=== PATIENT | male | born 1950 | race Caucasian/White ===

== ENCOUNTER → 2022-03-29 09:55 | Outpatient (BNVA) | payer MEDICARE, OTHER, SELFPAY | PROVIDERS: PCP Nurse Practitioner Family; Referring Provider Nurse Practitioner Family; Visit Provider Surgery | DX: Z80.0 Family history of malignant neoplasm of digestive organs (principal); Z12.11 Encounter for screening for malignant neoplasm of colon ==

== ENCOUNTER 2022-04-08 12:04 | Day surgery (SDC) | payer MEDICARE, OTHER, SELFPAY ==
[2022-04-08 12:32] VITALS: BP 109/78; PULSE 94; RESP 16; TEMP 36.7; O2SAT 100
[2022-04-08] MEDS: Lactated Ringers 1,000 ML 80 ML IV (12:53)
--- NOTE | 2022-04-08 13:48 | W.ANESPRE ---
General Info Date of Service Date Performed: 04/08/22 Height: 5 ft 9 in Weight: 67.4 kg Body Mass Index (BMI): 21.9 Surgical Procedure: Operation Date: 04/08/22 14:05 Proposed Procedure Side Surgeon laura Farrell MD Meds Allergies and Home Medications Allergies Allergy/AdvReac Type Severity Reaction Status Date / Time nut - unspecified Allergy Unknown Verified 04/08/22 12:23 Penicillins Allergy Unknown Skin Rash Verified 04/08/22 12:23 Home Medication Medication Instructions Recorded calcium carbonate 600 mg calcium 600 mg PO BID 11/25/21 (1,500 mg) tablet (Calcium) loratadine 10 mg capsule 10 mg PO DAILY 11/25/21 omega 7-wix-hek-fish oil 1,000 mg 1 cap PO BID 11/25/21 (120 mg-180 mg) capsule (Fish Oil) simvastatin 10 mg tablet 10 mg PO DAILY #90 tabs 01/14/22 Current Visit Medications: Current Medications Generic Name Dose Route Start Last Admin Trade Name Freq PRN Reason Stop Dose Admin Ringer's Solution 1,000 mls @ 80 mls/hr 04/08/22 06:00 04/08/22 12:53 IV 05/07/22 23:59 80 mls/hr INFUSION ALEXANDRA Administration IV Miscellaneous Supplies 1 each 04/08/22 06:00 Iv Access IV 05/07/22 23:59 DIRECTED ALEXANDRA Sodium Chloride 0 ml 04/08/22 06:00 Normal Saline Flush 10 Ml Syr IV 05/07/22 23:59 PRN PRN Sodium Chloride 0 ml 04/08/22 06:00 Normal Saline 10 Ml Vial IJ 05/07/22 23:59 DIRECTED PRN Sterile Water 0 ml 04/08/22 06:00 Water,Injection,Sterile 10 Ml Vial IJ 05/07/22 23:59 DIRECTED PRN PFSH Active Problems Active Problems: Problem Status Onset Code Abnormal LFTs R79.89 Hyperlipidemia E78.5 Age-related nuclear cataract, 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, 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 Onychomycosis B35.1 Screening for colon cancer Z12.11 Medical History Medical History Dermoid cyst of scalp Surgically removed Presbyopia Regular astigmatism, bilateral Surgical History Surgical History Hx of colonoscopy Hx of inguinal hernia surgery Hx of tonsillectomy Tobacco Smoking/Tobacco Use Status: Never Passive smoking exposure: Yes Second hand exposure: Yes Alcohol Alcohol Intake: never Substance Use Substance use: Never Substance use type: does not use Vital Signs and Lab Results Vital Signs Most Recent Vital Signs in EMR: Most Recent Vital Signs Temp Pulse Resp BP Pulse Ox 36.7 C 94 H 16 109/78 100 04/08/22 12:32 04/08/22 12:32 04/08/22 12:32 04/08/22 12:32 04/08/22 12:32 Lab Results Blood Type / Crossmatch: No Data to Display Complete Blood Count: No Data to Display Complete Metabolic Panel: No Data to Display Liver Function Panel: No Data to Display Coagulation Panel: No Data to Display Cardiac Panel: No Data to Display Arterial Blood Gas: No Data to Display Venous Blood Gas: No Data to Display Pancreas Panel: No Data to Display Thyroid Panel: No Data to Display Infectious Disease: No Data to Display Blood Cultures: No Data to Display Toxicology Panel: No Data to Display Anesthesia Assessment and Plan Anesthesia History Personal History: No History of Anesthesia Complications Family History: No Family History of Anesthesia Complications Exercise Tolerance Exercise Tolerance: Metabolic Equivalents>4 Pertinent Negatives Pertinent Negatives: No Symptoms of GERD, No Major Cardiovascular Symptoms or Complaints, No Major Pulmonary Symptoms or Complaints and No History of CVA/TIA Cardiac & Pulmonary Exam Cardiac Exam: Normal S1/S2 Heart Sounds Pulmonary Exam: Clear Bilateral Breath Sounds Implantable Cardiac Device Does patient have a Pacemaker or an ICD?: No Airway Exam Known Difficult Airway: No Mallampati Class: 2 Mouth Opening: Normal (> 3cm) Thyromental Distance: Greater than 3 cm Neck Range of Motion: Full ROM Neck Circumference: Normal Teeth Condition: Normal Dentition ASA Classification ASA Score: ASA 2 Emergency Case?: No NPO Status NPO Status: NPO Clears >2 hours, Solids >8 hours Anesthesia Plan Resuscitation Status: Full Code Anesthesia Technique: General Anesthesia Airway Planned: Natural Airway Monitors Used: Standard Monitors
[2022-04-08 13:58] VITALS: BMI 21.9
--- NOTE | 2022-04-08 14:47 | BOWEL_PTH ---
PATIENT: Carlos Farrell LOC: [facility] U#:[id number] AGE/SX: 71/M ROOM: RE04/08/[address]: Elias Farrell MD : [id number] BED: DIS: 04/08/2022 SPEC #: [id number] RECD: 04/08/22 18:33 STATUS: RAMIRO RE #: [id number] EDGARD: 04/08/22 14:[address]: Elias Farrell DEPT: Surgical Specimen RECD BY: Chayito Ly ENTERED: 04/08/22 18:34 SP TYPE: Bowel OTHR DR: Jaxon Caal, NEO Tissues: 1 - BIOPSY BOWEL Procedures: GROSS AND MICRO LEVEL 4 Comments: [id number]
[2022-04-08 15:00] VITALS: BP 93/70; PULSE 94; RESP 16; TEMP 36.5; O2SAT 99
--- NOTE | 2022-04-08 15:10 | W.COLOREPORT ---
Colonoscopy Report Date of procedure: 04/08/22 Pre-op diagnosis general: Screening colonoscopy for routine health maintenance Post-op diagnosis procedure note: other (Colon polyp) Procedure: Colonoscopy Surgeon: Elias Farrell Anesthesia Type: General:No Airway and General LMA/ETT Estimated blood loss (mL): 10 Pathology: other (Colon polyp at 95 cm) Complications: None Disposition: same day Indications: Carlos is a 71-year-old male with a family medical history that significant for a father with colon cancer. He has undergone screening colonoscopies in the past at a 5-year interval. He is here today for routine repeat screening colonoscopy. Prep: Miralax/Dulcolax Procedure Start Time: 14:24 Procedure End Time: 14:57 Retraction Time: 17 Findings: Colon polyp at 95 cm Procedure Description: After the induction of monitored anesthetic care, and with the patient in left lateral decubitus position, I began by performing an external anorectal exam.? Perineum and skin were normal, as was the anal verge.? There was no evidence of external hemorrhoids.? Next, I performed a digital rectal exam.? I did not appreciate any abnormal findings.? Next, I advanced a colonoscope into the rectal vault.? I performed retroflexion.? I did not see signs of pathologic internal hemorrhoids.? Using insufflation, I then advanced the colonoscope beyond the rectal folds and into the sigmoid colon before advancing towards the cecum.? The quality of the prep was adequate.? The scope was noted to be in the cecum by identification of the ileocecal valve and appendiceal orifice.? I then began withdrawing the colonoscope using repeated irrigation as necessary for full evaluation of the colonic mucosa. Around 95 cm from the anal verge I identified a 0.75 cm polyp. ?It appeared sessile in character. ?I was able to remove this with a biopsy forceps. ?I examined the site, and there was minimal bleeding. ?Once this was completed, I continued to withdraw the scope and examine the remainder of the colonic mucosa.?Once the scope was withdrawn to the level of the rectum, great care was taken to examine portions of the rectal folds.? Finally, the scope was withdrawn and the patient was brought to the same-day surgery recovery unit as the anesthetic wore off. ?The findings and instructions were shared with the patient prior to discharge.
--- NOTE | 2022-04-08 15:15 | W.PM.DSUDISC ---
Discharge Plan Disposition Patient Disposition: HOME Condition: Good Discharge Details Reason For Visit: [facility] Att[facility] Provider: Elias Farrell Primary Care Provider: Jaxon Caal Home Meds and New Rx's Prescriptions: Continued calcium carbonate [Calcium 600] 600 mg calcium (1,500 mg) tablet 600 mg PO BID loratadine 10 mg capsule 10 mg PO DAILY omega 7-rhy-djy-fish oil [Fish Oil] 1,000 mg (120 mg-180 mg) capsule 1 cap PO BID simvastatin 10 mg tablet 10 mg PO DAILY Qty: 90 3RF Discharge Instructions Instructions: Colorectal Polyps (DC) Additional Instructions: 1. If tolerated, consume a soft, low fiber diet for 1-2 days. [address] Do not drive, drink alcohol, operate machinery, make critical decisions, or do activities that require coordination or balance for 24 hours. 3. Because air was put into your colon during the procedure, expelling air from your rectum (passing gas or farting) is normal. 4. You may not have a bowel movement for 1-3 days because of the colonoscopy prep. This is normal. 5. Go directly to the emergency room if you notice any of the following: Develop chills (warm to touch), or if you have a thermometer and your temperature is above 101 Difficulty breathing or difficultly swallowing Persistent vomiting Severe abdominal pain, other than gas cramps Severe chest pain Black, tarry stools Any bleeding ? exceeding one tablespoon 6. Call your physician if the site where your intravenous was started becomes red, swollen, painful, and warm to touch. 7. Your physician has reviewed your pre-procedure medications. Please continue to take those medications as previously ordered. You will be given specific information/education regarding any changes to your medications before leaving. Referrals: Jaxon Caal, [employer] [Primary Care Provider] - Activity:: Activity as Tolerated Diet:: As Tolerated Discharge Orders Discharge Orders: Discharge Order (Routine); Ordered 04/08/22 Ordered By: Elias Farrell DS: Diagnosis Discharge Diagnosis (1) Colon polyp: Status: Acute Asessment and Plan: My office will call with results of the biopsy
[2022-04-08 15:17] VITALS: BP 108/78; PULSE 91; RESP 16; TEMP 36.6; O2SAT 99
--- NOTE | 2022-04-08 15:23 | W.ANESPOSTOP ---
Postoperative Evaluation Date, Time and Location Date Performed: 04/08/22 Time Performed: 15:23 Patient Location: Day Surgery Unit Vital Signs Most Recent Imported Vital Signs: Most Recent Vital Signs Temp Pulse Resp BP Pulse Ox 36.6 C 91 H 16 108/78 99 04/08/22 15:17 04/08/22 15:17 04/08/22 15:17 04/08/22 15:17 04/08/22 15:17 Pain Score Most Recent Pain Score: Most Recent Pain Score Pain Level 0 04/08/22 15:17 Assessment Mental Status: Awake (Alert & Oriented to Patient Baseline) Airway and Respiratory Function: Patent airway with normal (patient baseline) respiratory exam Cardiovascular Function: Hemodynamically Stable Hydration Status: Adequately Hydrated Nausea & Vomiting: No Nausea or Vomiting Pain: Pt. Denies Any Pain Peripheral Nerve Block: Patient did not receive a nerve block
[2022-04-08 15:39] VITALS: BP 114/77; PULSE 85; RESP 16; TEMP 36.6; O2SAT 99
== END 2022-04-08 15:55 | disposition home or self-care (01) ==
PROVIDERS: PCP Nurse Practitioner Family; Visit Provider Surgery
PROC: 0DJD8ZZ Inspection of Lower Intestinal Tract, Via Natural or Artificial Opening Endoscopic (ICD-10-PCS; CPT 45378; principal; 2022-04-08 14:00)
DX: Z12.11 Encounter for screening for malignant neoplasm of colon (principal); K63.5 Polyp of colon; Z80.0 Family history of malignant neoplasm of digestive organs
CPT/HCPCS: 45380; 88305

== ENCOUNTER 2022-07-12 14:29 | Emergency (ER) | payer MEDICARE, OTHER, SELFPAY ==
[2022-07-12 14:56] VITALS: BP 133/82; PULSE 60; RESP 18; TEMP 36.8; O2SAT 99
--- NOTE | 2022-07-12 15:03 | ED.GENADUL_ITS ---
Discharge Plan Disposition Patient Disposition: Home Condition: Stable Discharge Details Clinical Impression: Distal radius fracture, left, Fracture of ulnar styloid Primary Care Provider: Jaxon Caal ED Provider: Ronit Singletary Home Meds and New Rx's Prescriptions: New oxycodone 5 mg tablet 5 mg PO Q6H PRN (Reason: pain) Qty: 10 0RF Continued calcium carbonate [Calcium 600] 600 mg calcium (1,500 mg) tablet 600 mg PO BID loratadine 10 mg capsule 10 mg PO DAILY omega 9-oou-oqs-fish oil [Fish Oil] 1,000 mg (120 mg-180 mg) capsule 1 cap PO BID simvastatin 10 mg tablet 10 mg PO DAILY Qty: 90 3RF Discharge Instructions Instructions: Wrist Fracture in Adults (ED) Additional Instructions: You have a fracture of both of the radius and ulna in your left wrist. Keep the splint in place at all times until follow-up with orthopedics. Rest, ice, and elevate the affected area as much as possible. Alternate tylenol and motrin as needed and directed for pain. Take the oxycodone for pain not relieved with Tylenol or Motrin. Call the orthopedics office tomorrow to schedule a follow-up appointment for reevaluation within the next week. Return immediately to the emergency department if you develop any worsening or new concerning symptoms. Referrals: Branden Coffman MD [ [facility] STAFF PHYSICIAN] - Discharge Data Discharge Date/Time-TO BE ENTERED AT DEPARTURE: 07/12/22 17:52 Discharge Physician: Ronit Singletary Medical Decision Making 71-year-old povwz-wgmo-tvodgxki male presents with left wrist pain after slip and fall on ice onto outstretched left hand. Patient has a positive deformity with dorsal angulation of distal wrist. Likely consistent with Colles' fracture. No open wounds noted. Neurovascularly intact. Will refer for left wrist x-ray and give a dose of Tylenol and ibuprofen. X-ray confirmed distal radius fracture with minimal displacement and ulnar styloid fracture, nondisplaced. No formal orthopedist condenser tester. X-ray reviewed with orthopedic PA who recommends volar splint while pressing on dorsal wrist to attempt to provide some reduction of distal fragment. Discussed hematoma block and reduction but can attempt without if pt tolerates. Volar splint placed at bedside with pushing on dorsal aspect of distal fragment. Sling placed. Patient placed on orthopedic follow-up list. Neurovascular intact pre and postprocedure. Usual and customary return precautions given prior to discharge. Medical Records Medical records reviewed: Yes I reviewed the patient's medical records. Imaging Data Radiologic Study: Radiologist's impression: XR WRIST LT COMPLETE CLINICAL HISTORY: ? fall onto L wrist, + deformity,assess extent of fx. ? TECHNIQUE:? 2D digital imaging was performed. COMPARISON:? No exams were available for comparison FINDINGS: 3 views There is a fracture of the distal radius which violates the radiocarpal joint.? Minimal displacement.? There is also fracture through the base of the ulnar styloid.? Nondisplaced.? There is no prominent ulnar variance.? Scaphoid- navicular appears intact.? Some degenerative change noted at the articulation between the distal scaphoid and trapezium. IMPRESSION: Fractures of distal radius and ulna as described above.? No carpal dislocation evident. Sign Out No HPI General Mode of arrival: ambulatory . Date/Time Provider Initiated Documentation: 07/12/22 14:59 . Limitations to Documentation: no limitations . Information obtained by: patient . HPI Narrative: Patient is a [id number] 71-year-old male who presents with left wrist pain after slip and fall onto outstretched left hand after slipped on the ice at 1:30 PM today. He has not taken any medication for pain. He is complaining of pain only in the wrist with some radiation to his proximal forearm. He denies any other injuries. Related Data Home Medications Medication Instructions Recorded Confirmed calcium carbonate 600 mg calcium 600 mg PO BID 11/25/21 07/13/22 (1,500 mg) tablet (Calcium) loratadine 10 mg capsule 10 mg PO DAILY 11/25/21 07/13/22 omega 4-nrh-ilo-fish oil 1,000 mg 1 cap PO BID 11/25/21 07/13/22 (120 mg-180 mg) capsule (Fish Oil) simvastatin 10 mg tablet 10 mg PO DAILY #90 tabs 01/14/22 07/13/22 oxycodone 5 mg tablet 5 mg PO Q6H PRN pain #10 tabs 07/12/22 07/13/22 Previous Rx's Medication Instructions Recorded simvastatin 10 mg tablet 10 mg PO DAILY #90 tabs 06/16/22 oxycodone 5 mg tablet 5 mg PO Q6H PRN pain #10 tabs 07/12/22 Allergies Allergy/AdvReac Type Severity Reaction Status Date / Time nut - unspecified Allergy Unknown Verified 07/13/22 12:43 Penicillins Allergy Unknown Skin Rash Verified 07/13/22 12:43 General Stated Complaint: Orthopedic REESE: 4 Review of Systems All systems reviewed & are unremarkable except as noted in HPI and below Constitutional Constitutional: Reports as per HPI, Denies chills and Denies fever(s) Eyes Eyes: Denies blurry vision ENT Ears, Nose, Mouth, and Throat: Denies dizziness, Denies sore throat and Denies throat swelling Cardiovascular Cardiovascular: Denies chest pain and Denies dyspnea Respiratory Respiratory: Denies cough and Denies dyspnea Gastrointestinal Gastrointestinal: Denies abdominal pain, Denies diarrhea and Denies vomiting Genitourinary Genitourinary: Denies hematuria and Denies dysuria Musculoskeletal Musculoskeletal: Denies back pain and Denies numbness Comments: L wrist pain Integumentary/Breasts Skin/Breast: Denies lesions and Denies rash Neurologic Neurologic: Denies dizziness, Denies localized weakness and Denies numbness Allergic/Immunologic Allergic/Immunologic: Denies throat swelling PFSH All Active Problems (Updated 07/13/22 @ 12:31 by Luis Carlos Anglin MD) Distal radius fracture, left (Acute 07/12/22) Fracture of ulnar styloid (Acute 07/12/22) Tubular adenoma (Acute ~04/08/22) Colon polyp (Acute) Abnormal LFTs (Acute) Hyperlipidemia (Acute) Age-related nuclear cataract, bilateral (Acute) Hypermetropia, bilateral (Acute) Onychomycosis (Acute) Medical History (Updated 07/13/22 @ 12:31 by Luis Carlos Anglin MD) Dermoid cyst of scalp Surgically removed Presbyopia Regular astigmatism, bilateral Screening for colon cancer Surgical History (Updated 04/22/22 @ 12:57 by Merced Schafer RN) Hx of colonoscopy (~04/08/22) with polypectomy Hx of inguinal hernia surgery Hx of tonsillectomy Family History (Updated 11/25/21 @ 16:22 by Autumn Yi) Mother , 96 Hyperlipidemia Father , 83 Cancer Heart disease Hyperlipidemia Sister No problems noted. Social History (Updated 11/25/21 @ 16:21 by Autumn Rizo Smoking/Tobacco Use Status: Never Second Hand Exposure: Yes Smoking risk assessment performed?: Yes Alcohol Intake: never Drug use: Never Substance use type: does not use Household members: spouse Communication Needs: None Do you need help understanding health information?: Never Pets and animals: Yes Pets and animals: dog(s) Sexually active: Yes Do you think of yourself as: straight/heterosexual Current gender identity: male What is your relationship status?: How often do you talk on the phone with friends or family?: once per week How often do you get together with friends or relatives?: once per week Do you belong to any clubs or organized social groups?: yes Panel score (0-1 are the most socially isolated patients): 2 What type of physical activity do you participate in: walking Duration: 45-60 minutes/day Frequency: daily Seatbelt use: always Drive intox or ride w/intox electric mule driver: No Do you feel safe at home: Yes Do you feel safe in your relationship?: Yes Exam Const General: cooperative, healthy appearing and no acute distress HENMT Head: normal to inspection Mouth: oral mucosae normal Eyes General: appearance normal, both eyes and all related structures Neck Neck: normal visual inspection Resp Effort & Inspection: normal respiratory effort and able to speak in complete sentences Cardio Rate: regular rate Skin General skin exam: no rashes or lesions noted Neuro General: patient alert, patient awake and patient oriented x3 Motor: muscle tone normal throughout Extrem Other: Dorsal angulation of left distal wrist with prominence on volar aspect. There is positive deformity distal left wrist. Tenderness on dorsal and volar aspect of left wrist. Left radial pulse intact. Hand normal to inspection and pa lpation. Normal capillary refill left hand. No open wounds noted to left hand or wrist. Psych Appearance: grossly normal Affect: normal affect Course Vital Signs Vital signs: Vital Signs Temperature 98.3 F 07/12/22 14:56 Pulse 60 07/12/22 14:56 Respiratory Rate 18 07/12/22 14:56 Blood Pressure 133/82 07/12/22 14:56 Pulse Oximetry 99 07/12/22 14:56 Temperature 98.3 F 07/12/22 14:56 Temperature Source Oral 07/12/22 14:56 Pulse 60 07/12/22 14:56 Respiratory Rate 18 07/12/22 14:56 Respiratory Effort 07/12/22 14:59 Blood Pressure 133/82 07/12/22 14:56 Blood Pressure Position Sitting 07/12/22 14:56 Pulse Oximetry 99 07/12/22 14:56 Oxygen Delivery Method Room Air 07/12/22 14:56 Oxygen Flow Rate 0 07/12/22 14:56 Procedures Orthopedic Splinting/Casting Injury #1: Side: left Upper Extremity Injury Location: wrist Upper Extremity Immobilizer: volar splint
--- NOTE | 2022-07-12 15:28 | DI.RAD_ITS ---
Exam(s) XR WRIST LT COMPLETE EXAM: XR WRIST LT COMPLETE CLINICAL HISTORY: fall onto L wrist, + deformity,assess extent of fx. TECHNIQUE: 2D digital imaging was performed. COMPARISON: No exams were available for comparison FINDINGS: 3 views There is a fracture of the distal radius which violates the radiocarpal joint. Minimal displacement. There is also fracture through the base of the ulnar styloid. Nondisplaced. There is no prominent ulnar variance. Scaphoid-navicular appears intact. Some degenerative change noted at the articulat ion between the distal scaphoid and trapezium. IMPRESSION: Fractures of distal radius and ulna as described above. No carpal dislocation evident. DATA REPOSITORY: RADIATION DOSE DELIVERED:
[2022-07-12] MEDS: Ibuprofen 600 MG TAB PO (15:38)
[2022-07-12] MEDS: Acetaminophen 500 MG TAB 1000 MG PO (15:38)
[2022-07-12] MEDS: oxyCODONE 5 MG TAB PO (17:39)
--- NOTE | 2022-07-14 07:13 | NUR.NOTE ---
Nursing Note: Accessed chart for [facility] billing purposes.
== END 2022-07-12 17:52 | disposition home or self-care (01) ==
PROVIDERS: Emergency Provider Physician Assistant; PCP Nurse Practitioner Family
DX: S52.502A Unspecified fracture of the lower end of left radius, initial encounter for closed fracture (principal); S52.612A Displaced fracture of left ulna styloid process, initial encounter for closed fracture; W00.0XXA Fall on same level due to ice and snow, initial encounter
CPT/HCPCS: 29125; 99283; 73110; 99284

== ENCOUNTER 2022-07-13 12:45 | Outpatient (CLI) | payer MEDICARE, OTHER, SELFPAY ==
--- NOTE | 2022-07-13 12:30 | DI.RAD_ITS ---
Exam(s) XR WRIST LT LIMITED EXAM: XR WRIST LT LIMITED CLINICAL HISTORY: L wrist fx. TECHNIQUE: 2D digital imaging was performed of the left wrist. Two images were obtained. PA and la teral views were obtained. COMPARISON: CR XR WRIST LT COMPLETE from 07/12/2022 FINDINGS: BONES: There has been no change in alignment of the mildly impacted distal left radial fracture. The nondisplaced ulnar styloid fracture appears stable. No new fracture is identified. No bony destruc tive lesion is seen. JOINTS: The carpal bones are normally aligned. SOFT TISSUE: Soft tissue swelling of the wrist is present. IMPRESSION: Stable distal radial and ulnar fractures. DATA REPOSITORY: RADIATION DOSE DELIVERED:
--- NOTE | 2022-07-13 13:00 | DI.RAD_ITS ---
Exam(s) XR WRIST LT LIMITED EXAM: XR WRIST LT LIMITED CLINICAL HISTORY: post reduction L wrist fx. TECHNIQUE: 2D digital imaging was performed of the left wrist. Three images were obtained. PA and lateral views were obtained. COMPARISON: CR XR WRIST LT LIMITED from 07/13/2022 FINDINGS: BONES: There has been no change in alignment of the ulnar styloid process fracture. The distal radia l fracture is less impacted. Alignment appears anatomic. No bony destructive lesion is seen. JOINTS: The carpal bones are normally aligned. SOFT TISSUE: The patient's wrist is in a cast. IMPRESSION: Improved alignment of the distal radial fracture. Stable ulnar fracture. DATA REPOSITORY: RADIATION DOSE DELIVERED:
== END 2022-07-13 12:46 | disposition home or self-care (01) ==
PROVIDERS: PCP Nurse Practitioner Family; Referring Provider Nurse Practitioner Family; Visit Provider Physician Assistant
DX: S52.502A Unspecified fracture of the lower end of left radius, initial encounter for closed fracture (principal); S52.612A Displaced fracture of left ulna styloid process, initial encounter for closed fracture; X58.XXXA Exposure to other specified factors, initial encounter
CPT/HCPCS: 25600; 99204; 99214; 73100

== ENCOUNTER 2022-07-21 13:11 | Outpatient (CLI) | payer MEDICARE, OTHER, SELFPAY ==
--- NOTE | 2022-07-21 13:00 | DI.RAD_ITS ---
Exam(s) XR WRIST LT LIMITED EXAM: XR WRIST LT LIMITED CLINICAL HISTORY: f/u fracture. TECHNIQUE: 2D digital imaging was performed. COMPARISON: CR XR WRIST LT COMPLETE from 07/12/2022 CR XR WRIST LT LIMITED from 07/13/2022 CR XR WRIST LT LIMITED from 07/13/2022 FINDINGS: Two views: Taken through cast material. Stable alignment of the fracture site of distal radius. Also stable alignment of the nondisplaced fr acture at the base of the ulnar styloid. Is no significant ulnar variance. Scapholunate distance remains normal. IMPRESSION: Stable appearance at the fracture sites at distal radius and ulna. DATA REPOSITORY: RADIATION DOSE DELIVERED:
== END 2022-07-21 13:12 | disposition home or self-care (01) ==
LOC: DIORS 13:12
PROVIDERS: PCP Nurse Practitioner Family; Referring Provider Nurse Practitioner Family; Visit Provider Student in an Organized Health Care Education/Training Program
DX: S52.502A Unspecified fracture of the lower end of left radius, initial encounter for closed fracture (principal); X58.XXXA Exposure to other specified factors, initial encounter
CPT/HCPCS: 73100

== ENCOUNTER 2022-07-29 13:59 | Outpatient (CLI) | payer MEDICARE, OTHER, SELFPAY ==
--- NOTE | 2022-07-29 13:45 | DI.RAD_ITS ---
Exam(s) XR WRIST LT LIMITED EXAM: XR WRIST LT LIMITED CLINICAL HISTORY: radius fx f/u. TECHNIQUE: 2D digital imaging was performed. COMPARISON: CR XR WRIST LT LIMITED from 07/13/2022 CR XR WRIST LT LIMITED from 07/21/2022 FINDINGS: Two views: Cast has been removed. There is stable appearance of the distal radius fracture site. Fracture line still visible but no di splacement nor angulation. Ulnar styloid appears intact. Scaphoid intact. IMPRESSION: DATA REPOSITORY: RADIATION DOSE DELIVERED:
== END 2022-07-29 14:00 | disposition home or self-care (01) ==
LOC: DIORS 14:00
PROVIDERS: PCP Nurse Practitioner Family; Referring Provider Nurse Practitioner Family; Visit Provider Physician Assistant
DX: S52.502D Unspecified fracture of the lower end of left radius, subsequent encounter for closed fracture with routine healing (principal); X58.XXXD Exposure to other specified factors, subsequent encounter
CPT/HCPCS: 99213; 73100

== ENCOUNTER 2022-08-25 11:12 | Outpatient (CLI) | payer MEDICARE, OTHER, SELFPAY ==
--- NOTE | 2022-08-25 11:00 | DI.RAD_ITS ---
Exam(s) XR WRIST LT LIMITED EXAM: XR WRIST LT LIMITED INDICATION: LEFT RADIUS FX F/U. COMPARISON: CR XR WRIST LT LIMITED from 07/29/2022 TECHNIQUE: 2D digital imaging was performed. Two views. FINDINGS: There has been no change in the alignment of the distal radial fracture which shows some increased he aling compared with the previous exam. Degenerative changes are again noted at the scaphoid multangu lar joint. DATA REPOSITORY: RADIATION DOSE DELIVERED:
== END 2022-08-25 11:13 | disposition home or self-care (01) ==
LOC: DIORS 11:12
PROVIDERS: PCP Nurse Practitioner Family; Referring Provider Nurse Practitioner Family; Visit Provider Student in an Organized Health Care Education/Training Program
DX: S52.502A Unspecified fracture of the lower end of left radius, initial encounter for closed fracture (principal); X58.XXXA Exposure to other specified factors, initial encounter
CPT/HCPCS: 73100

== ENCOUNTER 2022-10-06 11:05 | Outpatient (CLI) | payer MEDICARE, OTHER, SELFPAY ==
--- NOTE | 2022-10-06 10:31 | DI.RAD_ITS ---
Exam(s) XR WRIST LT LIMITED EXAM: XR WRIST LT LIMITED INDICATION: radius fx f/u. COMPARISON: CR XR WRIST LT COMPLETE from 07/12/2022 CR XR WRIST LT LIMITED from 08/25/2022 TECHNIQUE: 2D digital imaging was performed. Two views. FINDINGS: There has been no change in the alignment of the distal radial fracture which shows some increased he aling compared with the previous exam. Ulnar styloid fracture not visible. Degenerative changes are again noted at the scaphoid multangular joints. DATA REPOSITORY: RADIATION DOSE DELIVERED:
== END 2022-10-06 11:06 | disposition home or self-care (01) ==
LOC: DIORS 11:05
PROVIDERS: PCP Nurse Practitioner Family; Referring Provider Nurse Practitioner Family; Visit Provider Student in an Organized Health Care Education/Training Program
DX: S52.502D Unspecified fracture of the lower end of left radius, subsequent encounter for closed fracture with routine healing (principal); X58.XXXD Exposure to other specified factors, subsequent encounter
CPT/HCPCS: 99213; 73100

== ENCOUNTER 2023-11-18 09:32 | Outpatient (CLI) | payer MEDICARE, OTHER, SELFPAY | END 2023-11-18 09:33 | disposition home or self-care (01) | LOC: CARDOPNVT 09:32 | PROVIDERS: PCP Nurse Practitioner Family; Visit Provider Nurse Practitioner Family | DX: R00.2 Palpitations (principal) | CPT/HCPCS: 93246 ==

== ENCOUNTER 2023-12-08 09:45 | Outpatient (CLI) | payer MEDICARE, OTHER, SELFPAY ==
--- NOTE | 2023-12-08 10:01 | CER_ITS ---
Date of service: 12/08/23 Time of Service: 10:02 Cardiac Event Recorder Referring Provider:: Jaxon Cala Indications:: Palpitations Cardiac Event Note: This is a cardiac event monitor. Patient was monitored for 12 days and 21 hours. Rhythm throughout was sinus. Average heart rate was 66. Minimum was 42, maximum 134 There were rare ventricular ectopic beats. There was 1 ventricular triplet There were occasional atrial premature beats. There were several brief self- limited atrial runs. The longest of these was 5 beats in duration There was no atrial fibrillation, no high-grade AV block, no pauses greater than 3 seconds Patient symptoms were reported which correlated to sinus rhythm in the 50s
== END 2023-12-08 09:46 | disposition home or self-care (01) ==
LOC: CARDOPNVT 09:45
PROVIDERS: PCP Nurse Practitioner Family; Visit Provider Internal Medicine Cardiovascular Disease
DX: I49.1 Atrial premature depolarization (principal)
CPT/HCPCS: 93248

== ENCOUNTER 2023-12-13 05:18 | Outpatient (CLI) | payer MEDICARE, OTHER, SELFPAY ==
[2023-12-13 12:30] LABS: Hemoglobin A1C 6.1 % (<5.7)
[2023-12-13 12:39] LABS: Calculated LDL 102 mg/dL (<100); Cholesterol 195 mg/dL (<200); HDL Cholesterol 81 mg/dL (40-60); Triglyceride 62 mg/dL (<150)
== END 2023-12-13 05:19 | disposition home or self-care (01) ==
LOC: LOS 05:18
PROVIDERS: PCP Nurse Practitioner Family; Visit Provider Nurse Practitioner Family
DX: Z13.1 Encounter for screening for diabetes mellitus (principal); Z13.6 Encounter for screening for cardiovascular disorders
CPT/HCPCS: 36415; 80061; 83036

== ENCOUNTER 2024-01-22 09:30 | Outpatient (REF) | payer MEDICARE, OTHER, SELFPAY ==
[2024-01-24 14:37] LABS: Helicobacter pylori Ag, Feces Negative (Negative)
== END 2024-01-22 09:31 | disposition home or self-care (01) ==
LOC: LBN 09:30
PROVIDERS: PCP Nurse Practitioner Family; Visit Provider Nurse Practitioner Adult Health
DX: K21.9 Gastro-esophageal reflux disease without esophagitis (principal); R14.0 Abdominal distension (gaseous); K59.00 Constipation, unspecified
CPT/HCPCS: 87338